=== PATIENT | female | born 1955 | race Caucasian/White ===

== ENCOUNTER 2018-03-04 15:22 | Emergency (ER) | payer OTHER ==
[~2018-03-04] VITALS: Ht 152.4 cm; Wt 42.2 kg
[2018-03-04 15:25] VITALS: BP 155/78
[2018-03-04] MEDS: KETOROLAC 30 MG/ML VIAL IVP ONE (16:18)
[2018-03-04 17:04] LABS: BASOPHILS % (AUTO) 0.5 % (0.0-2.0); EOSINOPHILS # (AUTO) 0.1 K/uL (0-0.4); HEMATOCRIT 35.2 % (36-48); HEMOGLOBIN 11.5 g/dL (12.0-16.0); LYMPHOCYTES # (AUTO) 1.6 K/uL (2.5-16.5); LYMPHOCYTES % (AUTO) 21.2 % (20.5-51.1); MEAN CORPUSCULAR HEMOGLOBIN 28 pg (27-31); MEAN CORPUSCULAR HGB CONC 33 g/dL (33-37); MEAN CORPUSCULAR VOLUME 86.2 fL (80-94); MONOCYTES # (AUTO) 0.8 K/uL (0.8-1.0); NEUTROPHILS # (AUTO) 5.1 K/uL (1.8-7.7); NEUTROPHILS % (AUTO) 66.3 % (42.2-75.2); PLATELET COUNT (AUTO) 240 K/uL (140-450); RED BLOOD CELL COUNT(AUTO) 4.09 MIL/uL (4.20-5.40); RED CELL DISTRIBUTION WIDTH 12.7 % (11.6-13.7); WHITE BLOOD COUNT (AUTO) 7.6 K/uL (4.8-10.8)
[2018-03-04 17:18] LABS: PROTHROMBIN TIME 9.2 secs (10.8-13.4)
[2018-03-04 17:33] LABS: ALBUMIN 3.7 g/dL (3.4-5.0); CREATININE 0.6 mg/dL (0.6-1.3); TOTAL BILIRUBIN 0.2 mg/dL (0.0-1.0)
[2018-03-04 17:35] LABS: D-DIMER < 100 ng/ml (0-400)
[2018-03-04 17:41] LABS: ANION GAP 11.3 (8-16); POTASSIUM 4.3 mmol/L (3.5-5.1)
[2018-03-04 18:44] VITALS: BP 140/68
== END 2018-03-04 18:44 | disposition home or self-care (01) ==
LOC: MED 15:22
DX: R07.89 Other chest pain (principal); I10 Essential (primary) hypertension; Z88.4 Allergy status to anesthetic agent; Z90.49 Acquired absence of other specified parts of digestive tract
CPT/HCPCS: 36415; 36600; 71045; 80053; 82803; 84484; 85025; 85379; 85610; 85730; 93005; 96372; 99285; J1885; Q0092